=== PATIENT | male | born 1985 | race Caucasian/White ===

== ENCOUNTER 2016-09-16 22:38 | Inpatient (IN) | payer OTHER ==
--- NOTE | ~2016-09-16 | PA ---
Unit #: [id number] #: [id number] Patient: MILADY SALINAS [id number] [facility] [address] [place] [address] [id number] I MR#: [id number] NAME: MILADY SALINAS ROOM: P186 Age: 30 Sex: M Admission Date: 09/16/2016 : 1985 Date of Assessment: 09/17/2016 Attending Physician: Gareth Salazar M.D. Admitting Physician: Gareth Salazar M.D. Primary Care Physician: Generic Doctor Not In System PSYCHIATRIC ASSESSMENT INFORMANTS The patient, reliable; OLOP, reliable. CHIEF COMPLAINT Opioid dependence. HISTORY OF PRESENT ILLNESS Milady is a 30-year-old man who reports several-year history of opioid dependence. He has been using up to 0.5 g daily for the past 2 years. This has caused significant difficulties in life and relationships, but he has no suicidal ideation, intent, or plan and was admitted for opioid detox. PAST PSYCHIATRIC HISTORY No previous inpatient treatment at this or other local facilities. He does not currently take psychiatric medications. FAMILY PSYCHIATRIC HISTORY None reported. SOCIAL HISTORY The patient denied any history of childhood abuse or neglect. He is a single heterosexual man with no current partner. He has 11th grade education and has been employed for 2 years. He is currently living with his mother and had an [id number] son whom he had custody prior to his drug use problem. PAST MEDICAL HISTORY Significant for history of hypertension with no current treatment. MEDICATIONS None currently. ALLERGIES Penicillins and bananas. SUBSTANCE ABUSE HISTORY As noted above. MENTAL STATUS EXAMINATION Milady presented as a mildly disheveled man, who appeared his stated age. He was cooperative with the examination. His speech was spontaneous and easily understood. Musculoskeletal examination was calm. His mood was Unit #: [id number] #: [id number] Patient: MILADY SALINAS mildly depressed with a congruent affect. He was alert and fully oriented. His memory and concentration were fair to good. Thought processes were logical with no active psychosis and no suicidal ideation. Insight and judgment, fair. Fund of knowledge and abstraction, fair. ASSETS AND LIABILITIES The patient knows local resources and presents voluntarily for treatment. Liabilities include problems maintaining sobriety and lack of stable employment. ADMITTING DIAGNOSES AXIS I: Opioid dependence with withdrawal, uncomplicated. AXIS II: No diagnosis. AXIS III: Opioid withdrawal syndrome. AXIS IV: AXIS V: PSYCHIATRIC PLAN The patient was admitted and placed on the opioid detox protocol. He will enroll in psychotherapy groups, and activities. Physical examination and laboratory studies will be ordered and reviewed. TREATMENT GOALS Establishment of sobriety, improvement in insight, and improvement in coping skills. DISCHARGE PLAN Follow up with chemical dependence programing of the patient's choice. ESTIMATED LENGTH OF STAY 5 days. Dictated by... Gareth Salazar M.D. ELLYN/netta TD: 11/14/2016 00:45 JOB #: [id number] PSYCHIATRIC ASSESSMENT Page 1 of 1 X Gareth Salazar MD X PSYCHIATRIC ASSESSMENT
--- NOTE | ~2016-09-16 | HP ---
Unit #: [id number] #: [id number] Patient: MILADY SALINAS [id number] [place] [address] [id number] I MR#: [id number] NAME: MILADY SALINAS ROOM: P186 Age: 30 Sex: M Admission Date: 09/16/2016 : 1985 Attending Physician: Gareth Salazar M.D. Admitting Physician: Gareth Salazar M.D. Primary Care Physician: Generic Doctor Not In System HISTORY AND PHYSICAL HISTORY OF PRESENT ILLNESS Milady is a 30-year-old male admitted on 09/16/2016 to [facility] for detox from heroin. PAST MEDICAL HISTORY None. PAST SURGICAL HISTORY None. ALLERGIES None. SOCIAL HISTORY Smokes 1 pack of cigarettes daily. No alcohol use. Does report daily use of heroin. He is currently single and living with his mother. FAMILY HISTORY Noncontributory. REVIEW OF SYSTEMS CONSTITUTIONAL: No fever or chills. HEENT: Denies any sore throat, ear pain or runny nose. CARDIOVASCULAR: Denies chest pain, irregular heart rhythm or palpitations. CHEST: Denies shortness of breath or cough. No hemoptysis. GASTROINTESTINAL: Denies nausea, vomiting, diarrhea or chronic constipation. ENDOCRINE: Denies history of increased thirst or urination. No recent significant weight loss or gain. GENITOURINARY: Denies dysuria, frequency, or hematuria. SKIN: Denies any rashes. HEMATOLOGIC: Denies history of increased bleeding or bruising. MUSCULOSKELETAL: Denies any hot, swollen joints. No generalized muscle pain. NEUROLOGIC: Denies problems with vision or speech. No frequent, severe headaches. No numbness, tingling or weakness in any extremities. Denies loss of bladder or bowel control. CURRENT MEDICATIONS None. PHYSICAL EXAMINATION GENERAL: Alert, oriented, in no acute distress. Unit #: [id number] #: [id number] Patient: MILADY SALINAS VITAL SIGNS: Blood pressure 142/89, heart rate 66, respirations 18, temperature 97.9. HEIGHT: 5 feet 10. WEIGHT: 174. SKIN: Warm and dry without rash or lesion. HEENT: Normocephalic. TMs not viewed. Oral and nasal passages clear. Conjunctivae clear. PERRLA. EOMs intact. NECK: Supple without lymphadenopathy or thyromegaly. HEART: Regular rate and rhythm without murmur. LUNGS: Clear. ABDOMEN: Soft, nontender, without masses or hepatosplenomegaly. : Not done. EXTREMITIES: No evidence of cyanosis, clubbing or edema. Moves all without focal deficit. NEUROLOGICAL: Grossly within normal limits. Cranial Nerves: II: Visual orellana are intact. III, IV AND : Extraocular movements are intact. Pupils are equal, round and reactive to light. V: Facial sensation is grossly normal. VII: Facial movements and expression are normal. VIII: Auditory acuity grossly intact. IX, X: Uvula is midline. Phonation is normal. XI: Patient shrugs shoulders and turns head normally. XII: Tongue protrudes in the midline. Sensory and Motor Function: Sensory and motor sensation is grossly normal. Motor: moves all extremities well. Coordination: Gait is normal. Deep Tendon Reflexes: Intact. IMPRESSION Psychiatric admission. RECOMMENDATIONS PSYCHIATRIC: Per psychiatrist. MEDICAL: No contraindications to participate in facility's activities. MEDICAL PROGNOSIS Good. MEDICAL CONDITION Stable. Dictated by... Farhad Jenkins/yady TD: 09/17/2016 19:39 JOB #: [id number] Unit #: [id number] #: [id number] Patient: MILADY SALINAS HISTORY AND PHYSICAL Page 1 of 1 X BC KELLY APRN HISTORY AND PHYSICAL
--- NOTE | ~2016-09-16 | DS ---
Unit #: [id number] #: [id number] Patient: JUSTINO SALINAS [id number] [facility] [address] [place] [address] [id number] I MR#: [id number] NAME: JUSTINO SALINAS ROOM: 86 Age: 30 Sex: M Admission Date: 09/16/2016 : 1985 Discharge Date: 09/19/2016 Attending Physician: Gareth Salazar M.D. Primary Care Physician: Generic Doctor Not In System DISCHARGE SUMMARY REASON FOR ADMISSION Justino is a 30-year-old man who reports a several-year history of opioid dependence. He has had increasing hopelessness, but no suicidal ideation and has had multiple psychosocial stressors related to his ongoing substance abuse. He was admitted for opioid detox. DIAGNOSTIC STUDIES LABORATORY RESULTS: CMP, CBC, thyroid functions, and urinalysis were all within normal limits. UDS was positive for opioids. HOSPITAL COURSE Justino was admitted and placed on the opioid detox protocol. He had moderate to mild detox symptoms and tolerated detox with no significant adverse side effects. He had a pleasant mood and bright affect and no suicidal ideation throughout the hospitalization and was able to discharge in good condition with no further suicidal thoughts. DISCHARGE DIAGNOSES AXIS I: Opioid dependence with withdrawal, uncomplicated, F11.23. AXIS II: No diagnosis. AXIS III: Opioid withdrawal, resolved. AXIS IV: AXIS V: DISCHARGE INSTRUCTIONS Follow up with CD programing of choice. DISCHARGE MEDICATIONS None. CONDITION AT DISCHARGE Fair. PROGNOSIS Fair. DIET AND ACTIVITY Per primary care physician. Dictated by... Gareth Salazar M.D. Unit #: [id number] #: [id number] Patient: JUSTINO SALINAS MR/modl TD: 09/21/2016 04:45 JOB #: [id number] DISCHARGE SUMMARY Page 1 of 1 X Gareth Salazar MD X DISCHARGE SUMMARY
--- NOTE | ~2016-09-16 | PN ---
Unit #: [id number] #: [id number] Patient: JUSTINO SALINAS [id number] [facility] [address] [place] [address] [id number] I MR#: [id number] NAME: JUSTINO SALINAS ROOM: P186 Age: 30 Sex: M Admission Date: 09/16/2016 : 1985 Attending Physician: Gareth Salazar M.D. Admitting Physician: Gareth Salazar M.D. Primary Care Physician: Generic Doctor Not In System [facility] PROGRESS NOTES DATE 09/18/2016. DISCUSSION Justino has hnyb-ih-dhhtsafd detox symptoms today. He is alert and fully oriented. His memory and concentration are fair to good. Thought processes are goal directed nonpsychotic. He now denies suicidal ideation, intent or plan and is looking forward to discharging from hospital near future. ASSESSMENT Opiate dependence. PLAN Continue detox protocol anticipating discharge as soon as tomorrow. Dictated by... Gareth Salazar M.D. MRH/gz TD: 09/19/2016 13:14 JOB #: [id number] [facility] PROGRESS NOTES Page 1 of 1 X Gareth Salazar MD PROGRESS NOTE
[2016-09-17 11:46] LABS: BASOPHIL# 0.1 X10e3 (0-0.3); BASOPHIL% 1.4 % (0-2.5); EOSINOPHIL# 0.3 X10e3 (0-0.7); EOSINOPHIL% 3.9 % (0.0-7.0); HEMOGLOBIN 12.8 gm/dL (13.0-16.0); LYMPHOCYTE# 2.9 X10e3 (1.0-3.5); LYMPHOCYTE% 40.8 % (17.0-45.0); MEAN CELL VOLUME 88.1 FL (83-96); MEAN CORPUSCULAR HEMOGLOBIN 29.7 PG (28-34); MEAN CORPUSCULAR HGB CONC 33.7 g/dL (30-36); MEAN PLATELET VOLUME 10.7 FL (6.5-11.5); MONOCYTE# 0.6 X10e3 (0-1.0); MONOCYTE% 7.9 % (3.0-12.0); NEUTROPHIL# 3.2 X10e3 (1.5-7.1); PLATELET COUNT 233 X10e3 (140-420); RED BLOOD COUNT 4.32 X10e (3.90-5.60); RED CELL DISTRIBUTION WIDTH 13.2 % (11.0-15.5)
[2016-09-17 11:57] LABS: DIFF IND NO
[2016-09-17 12:15] LABS: THYROID STIMULATING HORMONE 0.5 uIU/ml (0.34-5.60)
[2016-09-17 12:18] LABS: ALBUMIN SERUM 3.6 g/dL (3.5-5.0); BILIRUBIN,TOTAL 0.4 mg/dL (0.2-2.0); BUN/CREATININE RATIO 7.5; CALCIUM SERUM 8.8 mg/dL (8.4-10.2); CREATININE SERUM 0.8 mg/dL (0.6-1.4); GLOM FILT RATE Estimated 119.1 mL/min (>60); POTASSIUM 4.4 mmol/L (3.5-5.1); PROTEIN TOTAL SERUM 6.1 g/dL (6.0-8.3)
[2016-09-17 12:22] LABS: FREE THYROXIN (T4) 0.77 ng/dL (0.58-1.64)
[2016-09-18 11:38] LABS: URINE APPEARANCE CLEAR; URINE BILIRUBIN NEG (NEG); URINE BLOOD NEG (NEG); URINE COLOR YELLOW; URINE GLUCOSE NEG (NEG); URINE KETONE NEG (NEG); URINE LEUKOCYTE ESTERASE NEG (NEG); URINE NITRATE NEG (NEG); URINE PH 8.5 (5-8); URINE PROTEIN NEG (NEG); URINE UROBILINOGEN 0.2 MG/DL (NEG)
[2016-09-18 12:08] LABS: AMPHETAMINE NEG (NEG); BARBITURATES NEG (NEG); BENZODIAZEPINES NEG (NEG); COCAINE NEG (NEG); MARIJUANA NEG (NEG); OPIATES POS (NEG); TRICYCLIC ANTIDEPRESSANTS NEG (NEG); U METHADONE NEG (NEG)
== END 2016-09-19 13:15 | disposition home or self-care (01) | DRG 897 ==
LOC: P1E 22:38
PROVIDERS: Psychiatry & Neurology Psychiatry
PROC: HZ2ZZZZ Detoxification Services for Substance Abuse Treatment (ICD-10-PCS; principal; 2016-09-16)
DX: F11.23 Opioid dependence with withdrawal (principal); F17.210 Nicotine dependence, cigarettes, uncomplicated
CPT/HCPCS: 80053; 80307; 81003; 84439; 84443; 85025; 86592

== ENCOUNTER 2017-01-23 16:03 | Inpatient (IN) | payer OTHER ==
[~2017-01-23] VITALS: Ht 177.8 cm; Wt 81.6 kg
--- NOTE | ~2017-01-23 | PA ---
Unit #: [id number] #: [id number] Patient: MILADY SALINAS [id number] [place] [address] [id number] I MR#: [id number] NAME: MILADY SALINAS ROOM: P185 Age: 31 Sex: M Admission Date: 01/23/2017 : 1985 Date of Assessment: 01/24/2017 Attending Physician: Gareth Salazar M.D. Admitting Physician: Gareth Salazar M.D. Primary Care Physician: Generic Doctor Not In System PSYCHIATRIC ASSESSMENT DATE OF ASSESSMENT 01/24/2017. INFORMANTS The patient, reliable; OLOP, reliable. CHIEF COMPLAINT Substance abuse and depression. HISTORY OF PRESENT ILLNESS Milady is a 31-year-old man, who reports that he has relapsed on substances. He is asking people for money and ran into an old drug dealer who gave him a "free sample" causing his recent relapse. He denied suicidal ideation, but could not contract for safety, he left the hospital, and was admitted. PAST PSYCHIATRIC HISTORY One previous admission to this facility in 08/2016, and no current psychiatric treatment otherwise. FAMILY PSYCHIATRIC HISTORY None reported. SOCIAL HISTORY The patient denied a history of childhood abuse or neglect. He is a single heterosexual man with no current partner. He has an education for 11th grade. He is currently unemployed. He has an 18 month son, and is currently living with his mother. PAST MEDICAL HISTORY Hypertension. MEDICATIONS None currently. ALLERGIES Penicillin and food allergy to banana. SUBSTANCE ABUSE HISTORY As noted above. MENTAL STATUS EXAMINATION Milady presented as a mildly disheveled man, appearing his stated age. He Unit #: [id number] #: [id number] Patient: MILADY SALINAS was cooperative with the examination. His speech was spontaneous and clearly understood. Musculoskeletal examination demonstrated mild psychomotor agitation. His mood was irritable with a congruent affect. He was alert and fully oriented. His memory and concentration were fair to good. His thought processes were goal directed with no active psychosis. He had no suicidal ideation, intent, or plan, and no homicidal ideation this morning. Insight and judgment, fair. Fund of knowledge and abstraction, fair. ASSETS AND LIABILITIES The patient presents voluntarily for treatment and has stable housing. Liabilities include lack of stable employment and maintenance of sobriety. ADMITTING DIAGNOSES AXIS I: Adjustment disorder with depressed mood, F43.21; opiate dependence withdrawal, uncomplicated. AXIS II: No diagnosis. AXIS III: Active opioid withdrawal syndrome. AXIS IV: AXIS V: PSYCHIATRIC PLAN The patient was admitted and placed on suicide precautions and the opioid detox protocol. He denies any further suicidal ideation this morning, and so we will defer initiation of an antidepressant medication. He will enroll in dual diagnosis groups and activities, and physical examination and laboratory studies will be ordered and reviewed. TREATMENT GOALS Resolution of intoxication, improvement in insight, and improvement in coping skills. DISCHARGE PLANNING Follow up with [facility]. ESTIMATED LENGTH OF STAY 5 days. Dictated by... Gareth Salazar M.D. ELLYN/netta TD: 01/24/2017 12:27 JOB #: [id number] Unit #: [id number] #: [id number] Patient: MILADY SALINAS PSYCHIATRIC ASSESSMENT Page 1 of 1 X Gareth Salazar MD X PSYCHIATRIC ASSESSMENT
--- NOTE | ~2017-01-23 | HP ---
Unit #: [id number] #: [id number] Patient: MILADY SALINAS [id number] [place] [address] [id number] I MR#: [id number] NAME: MILADY SALINAS ROOM: P185 Age: 31 Sex: M Admission Date: 01/23/2017 : 1985 Attending Physician: Gareth Salazar M.D. Admitting Physician: Gareth Salazar M.D. Primary Care Physician: Generic Doctor Not In System HISTORY AND PHYSICAL HISTORY OF PRESENT ILLNESS Milady is a 31 year old admitted to [facility] because of his continued drug use. He shoots heroin. He has had other admissions to this facility for the same. PAST MEDICAL HISTORY Long history of opioid abuse to include IV heroin. PAST SURGICAL HISTORY Nothing reported. ALLERGIES Penicillin. SOCIAL HISTORY Smokes greater than one pack per day. Denies alcohol. Admits to long history of opioid abuse to include IV heroin. FAMILY HISTORY Medically noncontributory. REVIEW OF SYSTEMS CONSTITUTIONAL: No fever or chills. HEENT: Denies any sore throat, ear pain or runny nose. CARDIOVASCULAR: Denies chest pain, irregular heart rhythm or palpitations. CHEST: Denies shortness of breath or cough. No hemoptysis. GASTROINTESTINAL: Denies nausea, vomiting, diarrhea or chronic constipation. ENDOCRINE: Denies history of increased thirst or urination. No recent significant weight loss or gain. GENITOURINARY: Denies dysuria, frequency, or hematuria. SKIN: Denies any rashes. HEMATOLOGIC: Denies history of increased bleeding or bruising. MUSCULOSKELETAL: Denies any hot, swollen joints. No generalized muscle pain. NEUROLOGIC: Denies problems with vision or speech. No frequent, severe headaches. No numbness, tingling or weakness in any extremities. Denies loss of bladder or bowel control. CURRENT MEDICATIONS Detox protocol. PHYSICAL EXAMINATION Unit #: [id number] #: [id number] Patient: MILADY SALINAS GENERAL: Alert, well nourished. No apparent distress. VITAL SIGNS: Blood pressure 113/70, heart rate 70, respirations 16, and temperature 98.6. WEIGHT: 180. HEIGHT: 5 feet 10 inches. SKIN: Warm and dry without rash or lesion. HEENT: Normocephalic. TMs not viewed. Oral and nasal passages clear. Conjunctivae clear. PERRLA. EOMs intact. NECK: Supple without lymphadenopathy or thyromegaly. HEART: Regular rate and rhythm without murmur. LUNGS: Clear. ABDOMEN: Soft, nontender. : Not done. EXTREMITIES: No evidence of cyanosis, clubbing or edema. Moves all without focal deficit. NEUROLOGICAL: Grossly within normal limits. Cranial Nerves: II: Visual orellana are intact. III, IV AND : Extraocular movements are intact. Pupils are equal, round and reactive to light. V: Facial sensation is grossly normal. VII: Facial movements and expression are normal. VIII: Auditory acuity grossly intact. IX, X: Uvula is midline. Phonation is normal. XI: Patient shrugs shoulders and turns head normally. XII: Tongue protrudes in the midline. Sensory and Motor Function: Sensory and motor sensation is grossly normal. Motor: moves all extremities well. Coordination: Gait is normal. Deep Tendon Reflexes: Intact. IMPRESSION Psychiatric admission. RECOMMENDATIONS PSYCHIATRIC: Per psychiatrist. MEDICAL: I see no contraindication to participate in this facility's activities. MEDICAL PROGNOSIS Good. MEDICAL CONDITION Stable. Dictated by... Kaye Ford PValerioASarah. for Cathleen Hurt/chasity TD: 01/24/2017 14:57 JOB #: [id number] Unit #: [id number] #: [id number] Patient: MILADY SALINAS HISTORY AND PHYSICAL Page 1 of 1 X Kaye Ford HISTORY AND PHYSICAL
[2017-01-24 09:40] LABS: BASOPHIL# 0.1 X10e3 (0-0.3); BASOPHIL% 1.3 % (0-2.5); EOSINOPHIL# 0.4 X10e3 (0-0.7); EOSINOPHIL% 5.4 % (0.0-7.0); HEMOGLOBIN 13.5 gm/dL (13.0-16.0); LYMPHOCYTE% 45.7 % (17.0-45.0); MEAN CELL VOLUME 86.1 FL (83-96); MEAN CORPUSCULAR HEMOGLOBIN 29.8 PG (28-34); MEAN CORPUSCULAR HGB CONC 34.6 g/dL (30-36); MONOCYTE# 0.5 X10e3 (0-1.0); MONOCYTE% 8.2 % (3.0-12.0); NEUTROPHIL# 2.6 X10e3 (1.5-7.1); NEUTROPHIL% 39.4 % (40-75); PLATELET COUNT 189 X10e3 (140-420); RED BLOOD COUNT 4.53 X10e (3.90-5.60); RED CELL DISTRIBUTION WIDTH 12.6 % (11.0-15.5); WHITE BLOOD COUNT 6.6 X10e3 (4.0-10.5)
[2017-01-24 09:43] LABS: DIFF IND NO
[2017-01-24 09:59] LABS: ALBUMIN SERUM 3.8 g/dL (3.5-5.0); BILIRUBIN,TOTAL 0.5 mg/dL (0.2-2.0); CREATININE SERUM 0.8 mg/dL (0.6-1.4); GLOM FILT RATE Estimated 118.2 mL/min (>60); POTASSIUM 4.1 mmol/L (3.5-5.1)
[2017-01-24 10:09] LABS: AMPHETAMINE NEG (NEG); BARBITURATES NEG (NEG); BENZODIAZEPINES NEG (NEG); COCAINE NEG (NEG); MARIJUANA NEG (NEG); OPIATES POS (NEG); TRICYCLIC ANTIDEPRESSANTS NEG (NEG); U METHADONE NEG (NEG)
== END 2017-01-24 19:30 | disposition left against medical advice (07) | DRG 881 ==
LOC: P1E 19:24
PROVIDERS: Psychiatry & Neurology Psychiatry
PROC: HZ2ZZZZ Detoxification Services for Substance Abuse Treatment (ICD-10-PCS; principal; 2017-01-24)
DX: F43.21 Adjustment disorder with depressed mood (principal); F11.23 Opioid dependence with withdrawal
CPT/HCPCS: 80053; 80307; 85025; 86592